=== PATIENT | female | born 1960 | race Caucasian/White ===

== ENCOUNTER → 2018-02-05 | Outpatient (CLI) | payer OTHER | END | disposition home or self-care (01) | LOC: MA 08:51 | PROC: BH02ZZZ Plain Radiography of Bilateral Breasts (ICD-10-PCS; principal; 2018-02-05) | DX: Z12.31 Encounter for screening mammogram for malignant neoplasm of breast (principal) | CPT/HCPCS: 77067 ==

== ENCOUNTER → 2019-05-12 | Outpatient (CLI) | payer OTHER | END | disposition home or self-care (01) | LOC: RD 10:41 | DX: M25.551 Pain in right hip (principal) ==